=== PATIENT | female | born 1975 | race Caucasian/White ===

== ENCOUNTER 2016-11-22 09:23 | Emergency (ER) | payer MEDICAID ==
[2016-11-22] MEDS ORDERED: OPTIRAY 350 100 ML VIAL HMH IV ONE (09:24)
[2016-11-22] MEDS ORDERED: KETOROLAC 30 MG/ML VIAL ONE (12:04)
== END 2016-11-22 12:42 | disposition home or self-care (01) ==
LOC: ER 09:23
CPT/HCPCS: 71020; 71260; 96374